=== PATIENT | female | born 1960 | race Caucasian/White ===

== ENCOUNTER 2016-05-24 05:36 | Day surgery (SDC) | payer OTHER ==
[~2016-05-24] VITALS: Ht 185.4 cm; Wt 99.8 kg
--- NOTE | ~2016-05-24 | OR ---
PATIENT'S NAME: [facility] AGE: 56 Y [address] ROOM: [place] [address] [place] [facility] [place] DATE: 05/24/2016 OR/Procedure Report DISCHARGE DATE: FAMILY PHYSICIAN: PHYSICIAN, NO ATTENDING PHYSICIAN: Sushant Weeks SURGEON: Sushant Weeks MD CREDIT RISK OFFICER: DATE OF PROCEDURE: 05/24/2016 PREOPERATIVE DIAGNOSES: 1. Cervical degenerative disk disease. 2. Cervical spondylosis. 3. Cervical radiculopathy. 4. Cervical herniated disks. 5. Neck pain. POSTOPERATIVE DIAGNOSES: 1. Cervical degenerative disk disease. 2. Cervical spondylosis. 3. Cervical radiculopathy. 4. Cervical herniated disks. 5. Neck pain. PROCEDURES PERFORMED: 1. Anterior cervical diskectomy and decompression, C5-6. 2. Anterior cervical diskectomy and decompression, C6-7. 3. Anterior cervical fusion, C5-6. 4. Anterior cervical fusion, C6-7. 5. Application of allograft structural bone, C5-6. 6. Application of allograft structural bone, C6-7. 7. Application of anterior plate screw instrumentation C5 to C7. DRIVING INSTRUCTOR: AUNDREA Romano ANESTHESIA: General. ESTIMATED BLOOD LOSS: 25 mL. COMPLICATIONS: None. SPECIMENS: None. FINDINGS: Severe degenerative collapse with large osteophyte formation and stenosis, C6-7. Herniated disk with stenosis, right C5-6. PATIENT'S NAME: [facility] AGE: 56 Y [address] ROOM: [place] [address] [place]: [facility] [place] DATE: 05/24/2016 OR/Procedure Report DISCHARGE DATE: FAMILY PHYSICIAN: PHYSICIAN, NO ATTENDING PHYSICIAN: Sushant Weeks IMPLANTS USED: Yovany Tempus anterior cervical plate and [employer] allograft bone. OPERATIVE INDICATIONS: The patient is a 56-year-old female whom I have followed for symptomatic cervical stenosis with radiculopathy. She had failed conservative treatment. She was offered surgery in the form of anterior cervical diskectomy and fusion. After the details, risks, benefits, and options were explained, she freely consented to surgery. OPERATIVE NARRATIVE: After the patient was correctly identified and operative site initialed, she was taken back to the operating room and placed in the supine position. After general anesthesia was induced, she was placed in the supine position with all bony prominences well padded and protected. The neck was prepped and draped in the usual sterile fashion. A time-out was taken to verify the patient and the procedure. 10 mL of 0.25% Marcaine with epinephrine was injected in line with the incision. A 10 blade was used to make a transverse incision on the left side of the neck over the operative levels. Dissection was taken down through skin and subcutaneous tissue with electrocautery. Dissection was taken down through subcutaneous tissue and the platysma split in line with the incision as was the pretracheal layer of the deep cervical fascia. Blunt dissection brought us down onto the anterior margin of the spine. The prevertebral fascia was opened in the midline and dissected laterally to expose the disk space. The disks were exposed, and a spinal needle was placed into the disk and verified under fluoroscopy at C5-6. This disk was marked. Next, the longus colli were elevated, and self- retaining retractors were placed on the medial borders bilaterally to allow exposure. The disks at C5-6 and C6-7 were incised and then were debrided using curettes, pituitaries, and Kerrison. The overhanging osteophytes were taken down with a Kerrison. The posterior osteophytes were thinned with a high-speed bur and then resected using a fine 1 mm tipped Kerrison. The large herniated disk on the right neural foramen at C5-6 was removed under direct visualization with a fine-tipped Kerrison. After decompression of both levels was complete, the endplates were denuded of their cartilage, rasped, and prepared for fusion. Bone graft of the appropriate size was impacted in position at both levels and recessed below the anterior vertebral margin. The weights were removed from the traction device, and a 2-level plate of appropriate length was held in position, and then variable screws were placed into C5, C6, and C7. Screws were locked to the plate and had good purchase. The wound was irrigated and dried. There was no bleeding. Final AP and lateral C-arm shots were taken to verify placement of the hardware and bone graft. The wound was repaired in layers with 2-0 Vicryl on the platysma and 3- 0 Monocryl on the skin. Sterile dressing was applied, and the patient was awakened from anesthesia and taken to the recovery room in stable condition. A medical or surgical instrument maker was necessary during this procedure for evacuation of PATIENT'S NAME: [facility] AGE: 56 Y [address] ROOM: [address] [address] [place]: [facility] [place] DATE: 05/24/2016 OR/Procedure Report DISCHARGE DATE: FAMILY PHYSICIAN: PHYSICIAN, NIEVES ATTENDING PHYSICIAN: Sushant Weeks blood during decompression and assistance with placement of the bone graft for fusion and plate screw construct for stabilization. MD ARIAS WONG/ck /[id number] d: 05/24/16 1630 t: 06/09/16 1227, OPERATIVE SUMMARY
--- NOTE | ~2016-05-24 | HP ---
PATIENT'S NAME: CHANDA ARMENTA [facility] AGE: 56 Y [address] ROOM: [place] [address] LOCATION: [facility] – [place] ADMIT DATE: 05/24/2016 History & Physical DISCHARGE DATE: FAMILY PHYSICIAN: PHYSICIAN, NO ATTENDING PHYSICIAN: Sushant Weeks DATE OF SERVICE: CHIEF COMPLAINT: Neck pain. HISTORY OF PRESENT ILLNESS: Chanda is a 56-year-old, , white female, from [place], [place] where she is employed as a certified court/medical interpreter. When I see her, she is with her . She is postop status after having an ACDF procedure done per Dr. Sushant Weeks [facility] for cervical stenosis. She is not complaining of chest pain, shortness of breath, nausea, or vomiting. She says her pain control is adequate. I will follow her for medical illness and pain management. PAST HISTORY MEDICATIONS: 1. Losartan 50 mg a day. 2. Prilosec 20 mg a day. 3. Aspirin 81 mg daily. 4. Black Cohosh, strength unknown, daily. 5. Ultram 50 mg as needed. 6. Flonase nasal spray as needed. 7. Calcium with vitamin D daily. ALLERGIES TO MEDICATIONS: No known drug allergies. PREVIOUS OPERATIONS: Status post hysterectomy. SOCIAL HISTORY: Does not smoke. FAMILY HISTORY: Negative for problems with bleeding or general anesthesia. REVIEW OF SYSTEMS: HEENT: No recent changes in vision. No sore throat. ENDOCRINE: She is not diabetic. There is no thyroid disease. LUNGS: No history of asthma. PATIENT'S NAME: CHANDA ARMENTA [facility] AGE: 56 Y [address] ROOM: [place] [address] LOCATION: [facility] [place] ADMIT DATE: 05/24/2016 History & Physical DISCHARGE DATE: FAMILY PHYSICIAN: PHYSICIAN, NO ATTENDING PHYSICIAN: Sushant Weeks HEART: History of hypertension. No chest pain or PA recently. GI: History of GERD. No recent change in bowel habits. : No dysuria or frequency. SPINE: As above. NEUROLOGIC: No history of seizure or stroke. Mood, no history of recent depression or anxiety. PHYSICAL EXAMINATION: VITAL SIGNS: Noted. GENERAL: She is alert and oriented x3. Postop status. She is wearing a neck collar. HEENT: Otherwise benign. She does not wear glasses. NECK: Unremarkable. Neck shows her collar present. LUNGS: Clear. HEART: No murmur. Regular rhythm. ABDOMEN: Benign. No point tenderness. PELVIC/RECTAL: Not done. EXTREMITIES: Unremarkable. NEUROLOGIC: Grossly intact. Cranial nerves intact. MENTAL STATUS: Normal postop. ASSESSMENT: 1. Neck pain and cervical stenosis. 2. Hypertension, essential. 3. Gastroesophageal reflux disease, chronic. 4. Allergic rhinitis. 5. Exogenous obesity. PLAN: Follow daily. MD XAVI ARROYO/modl /[id number] D: [id number] T: [id number] HISTORY & PHYSICAL
[~2016-05-24 05:36] MED LIST: ASPIRIN LO-DOSE81 MG PO; BLACK COHOSH40 M1 PO; COZAAR50 MG PO; FLONASE 50 MCG/16 GM NOSE; PRILOSEC20 MG PO; TRAMADOL HCL50 MG PO
[2016-05-24] MEDS ORDERED: CALCIUM GUMMIE1 EACH PO (06:37)
[2016-05-24] MEDS ORDERED: FIBER GUMMIES2 GM PO (06:38)
--- NOTE | 2016-05-24 17:38 | NUR ---
Significant Event: PT ARRIVED FROM PACU AT 1438, ACDF C5-[address] GILBERT. POST OP VSS, ON ROOM AIR. CSM WNL. R EXTREMITY STRENGTH SLIGHTLY WEAKER THAN LEFT. PT HAS AMBULATED TO BR WITH SBA. HARD COLLAR ON AT ALL TIMES. DRESSING TO ANTERIOR NECK C/D/I. TOLERATING CLEAR LIQUID DIET, CAN ADVANCE TOLERATED. IVF RUNNING, IV ABX SCHEDULED. HAS STATED PAIN TOLERABLE, NO PRN MEDS GIVEN. Follow up: CSM CHECKS, POST OP VITALS
--- NOTE | 2016-05-25 02:58 | NUR ---
A&O. SBA. HArd collar in place. Dressing to anterior neck CDI. C/o FLORES last night- Tramadol given and effective. IV L hand. Nauseated after getting up at beginningof shift- Urmila Mist and crackers given and effective. Offered Zofran but patient declined. Voiding well. Probable discharge to home today.
[2016-05-25] MEDS ORDERED: SOMA350 MG PO (10:32)
== END 2016-05-25 12:10 | disposition disaster alternative care site (69) ==
LOC: GSDC 05:36 → GMSU 05:36 → GPOC 14:00 → GSDC 05-25 12:10
PROC: 0RB30ZZ Excision of Cervical Vertebral Disc, Open Approach (ICD-10-PCS; principal; 2016-05-24)
PROC: 00NW0ZZ Release Cervical Spinal Cord, Open Approach (ICD-10-PCS; 2016-05-24)
DX: M48.02 Spinal stenosis, cervical region (principal); M50.122 Cervical disc disorder at C5-C6 level with radiculopathy; M50.123 Cervical disc disorder at C6-C7 level with radiculopathy; M47.22 Other spondylosis with radiculopathy, cervical region; I10 Essential (primary) hypertension; K21.9 Gastro-esophageal reflux disease without esophagitis; E66.09 Other obesity due to excess calories; Z68.31 Body mass index [BMI] 31.0-31.9, adult; Z90.710 Acquired absence of both cervix and uterus; Z79.82 Long term (current) use of aspirin; Z79.899 Other long term (current) drug therapy
CPT/HCPCS: C1713; J0131; J0690; J1100; J2405; J2550; J3010; J3370; J3480; J7050; J7120